=== PATIENT | male | born 1940 | race Caucasian/White ===

== ENCOUNTER → 2017-04-13 | Outpatient (CLI) | payer OTHER ==
[~2017-04-13] VITALS: Ht 170.2 cm; Wt 77.1 kg
[~2017-04-13] MED LIST: ASPIR 8181 MG PO; ASPIRIN325 PO; ATORVASTATIN CA40 MG PO; BYSTOLIC 5 MG5 M1 PO; LISINOPRIL40 MG PO; NORVASC5 MG PO; OMEGA-31000 M1 PO; PRESERVISION T1 EACH PO
--- NOTE | ~2017-04-13 | S ---
[facility] Amaya [place] [address] SURGICAL PATH RPT PROCEDURE Name: FLAKO BRISENO Ko Room #: REG PETER Vazquez.#: [id number] Admission: 04/13/17 Date of : 40 Discharge: Report #: [id number] Path Case #: [id number] PATHOLOGY REPORT COLLECTION DATE: 04/13/2017 RECEIVED DATE: 04/13/2017 SUBMITTING PHYS: Dr. Terry Thomas OTHER PHYS: Dr. Kevan Parra SPECIMEN(S) RECEIVED: A.Bx of polyp at 60 cm (force) * * * * * * * * * * * * FINAL DIAGNOSIS: A. Polyp, at 60 cm, endoscopic biopsy: - Tubular adenoma admixed with hyperplastic changes. - Negative for high grade dysplasia. PATHOLOGIST: Celestina Diaz M.D. REPORT ELECTRONICALLY SIGNED BY: Celestina Diaz M.D. DATE/TIME: 04/16/2017 16:14 * * * * * * * * * * * * GROSS PATHOLOGY: Received in formalin labeled "Flako Briseno, biopsy of polyp at 60 cm," is a segment of dickerson soft tissue measuring 0.5 cm in maximum dimension. The specimen is submitted entirely in cassette A1. ([facility]; 04/14/2017) CLINICAL HISTORY: Pre-op diagnosis: History of polyps Post-op diagnosis: Polyp, diverticulosis INITIAL CPT CODE(S): A; 82978 Professional services performed by [facility] at [facility] [place] [address] Technical services performed by [facility] at [address] [place] [address], [address], [place] [address]. [facility] [address] [place] [address] SURGICAL PATH RPT PROCEDURE Name: FLAKO BRISENO Room #: REG [facility] Silvina.#: [id number] Admission: 04/13/17 Date of : 40 Discharge: Report #: [id number] Path Case #: [id number] [address] PHONE: [phone] DIRECTOR: Milo Rodriguez M.D. * * * END OF REPORT * * *
== END | disposition home or self-care (01) ==
LOC: GI 09:30
DX: Z09 Encounter for follow-up examination after completed treatment for conditions other than malignant neoplasm (principal); D12.4 Benign neoplasm of descending colon; K57.30 Diverticulosis of large intestine without perforation or abscess without bleeding; I10 Essential (primary) hypertension; E78.00 Pure hypercholesterolemia, unspecified; Z95.5 Presence of coronary angioplasty implant and graft; Z85.46 Personal history of malignant neoplasm of prostate; Z79.82 Long term (current) use of aspirin; Z88.8 Allergy status to other drugs, medicaments and biological substances; Z79.899 Other long term (current) drug therapy; Z98.41 Cataract extraction status, right eye; Z98.42 Cataract extraction status, left eye; Z96.1 Presence of intraocular lens; Z98.890 Other specified postprocedural states
CPT/HCPCS: 62110; 62900

== ENCOUNTER → 2020-04-27 | Outpatient (CLI) | payer OTHER | LOC: SJCVC 14:56 | PROVIDERS: ATTEND Internal Medicine Cardiovascular Disease | DX: R94.31 Abnormal electrocardiogram [ECG] [EKG] (principal); I25.10 Atherosclerotic heart disease of native coronary artery without angina pectoris; I10 Essential (primary) hypertension; E78.00 Pure hypercholesterolemia, unspecified; I65.23 Occlusion and stenosis of bilateral carotid arteries; Z79.82 Long term (current) use of aspirin; Z79.899 Other long term (current) drug therapy; Z82.49 Family history of ischemic heart disease and other diseases of the circulatory system ==

== ENCOUNTER → 2020-09-30 | Outpatient (CLI) | payer OTHER | LOC: SJCVCIMAG 10:07 | PROVIDERS: ATTEND Internal Medicine Cardiovascular Disease | DX: I08.2 Rheumatic disorders of both aortic and tricuspid valves (principal); I25.10 Atherosclerotic heart disease of native coronary artery without angina pectoris; H91.8X9 Other specified hearing loss, unspecified ear; I10 Essential (primary) hypertension; E78.5 Hyperlipidemia, unspecified; Z79.899 Other long term (current) drug therapy ==

== ENCOUNTER → 2021-06-09 | Outpatient (CLI) | payer OTHER | LOC: SJCVC 10:35 | PROVIDERS: ATTEND Internal Medicine Cardiovascular Disease | DX: R94.31 Abnormal electrocardiogram [ECG] [EKG] (principal); I47.1 Supraventricular tachycardia; I25.10 Atherosclerotic heart disease of native coronary artery without angina pectoris; I10 Essential (primary) hypertension; E78.00 Pure hypercholesterolemia, unspecified; M54.16 Radiculopathy, lumbar region; C43.9 Malignant melanoma of skin, unspecified; Z85.46 Personal history of malignant neoplasm of prostate; Z79.82 Long term (current) use of aspirin; Z79.899 Other long term (current) drug therapy; Z88.8 Allergy status to other drugs, medicaments and biological substances ==